=== PATIENT | female | born 1965 | race Caucasian/White ===

== ENCOUNTER 2019-02-18 10:58 | Emergency (ER) | payer MEDICAID ==
[2019-02-18 11:11] VITALS: BMI 21.2
[2019-02-18 11:13] VITALS: TEMP 98.5
[2019-02-18 11:53] VITALS: O2SAT 98
--- NOTE | 2019-02-18 13:48 | ED PDOC ---
Upper Extremity Pain/Injury Time Seen by Provider: 02/18/19 11:43 Chief Complaint (Nursing): Upper Extremity Problem/Injury Chief Complaint (Provider): hand pain History Per: Patient History/Exam Limitations: no limitations Onset/Duration Of Symptoms: Days Current Symptoms Are (Timing): Still Present Additional Complaint(s): Pt. is a healthy 54 year old Female who reports 3 week history of right hand pain, described as a soreness, made worse with ROM of 1st digit. Pt. denies any fevers, chills. She also denies any injury to right hand. Past Medical History Vital Signs: Last Vital Signs Temp 98.5 F 02/18/19 11:11 Pulse 59 L 02/18/19 11:11 Resp 17 02/18/19 11:11 BP 109/70 02/18/19 11:11 Pulse Ox 98 02/18/19 11:51 - Medical History PMH: No Chronic Diseases - Family History Family History: States: No Known Family Hx - Home Medications Home Medications: Ambulatory Orders Medication Instructions Recorded Naproxen 500 mg PO Q12 #10 tab 02/18/19 - Allergies Allergies/Adverse Reactions: Allergies Allergy/AdvReac Type Severity Reaction Status Date / Time No Known Allergies Allergy Verified 02/18/19 13:22 Physical Exam - Physical Exam Appears: Positive for: Well, Non-toxic Skin: Positive for: Normal Color, Warm, Dry Extremity: Positive for: Other (RUE: (+) mild tenderness over 1st MCP, with mild pain on flexion and extension. (-) erythema.) - ECG O2 Sat by Pulse Oximetry: 98 Medical Decision Making Medical Decision Making: Motrin po given. Hand x-ray: no fx as read by me Pt. feeling better after motrin. Exam as above, no evidence of tenosynovitis or infectious process. Hand immobilized with narinder wrap by angela roberts. Disposition - Clinical Impression Clinical Impression: Tendonitis - Patient ED Disposition Is Patient to be Admitted: No Counseled Patient/Family Regarding: Studies Performed, Diagnosis, Need For Followup - Disposition Referrals: Terry Means MD [Staff Provider] - Disposition: Routine/Home Disposition Time: 13:57 Condition: STABLE Additional Instructions: rest, ice, elevate. Prescriptions: Naproxen 500 mg PO Q12 #10 tab Instructions: Tendonitis (DC) Forms: [employer] (Khmer)
--- NOTE | 2019-02-18 14:19 | RAD ---
Date of service: 02/18/2019 PROCEDURE: Right Thumb radiographs. HISTORY: right 1st MCP pain COMPARISON: None. TECHNIQUE: AP radiograph of the right hand, as well as spot oblique and lateral images of thumb were obtained. 3 views obtained. FINDINGS: RIGHT THUMB: Normal right thumb, without fracture or focal lesion. Remainder of the right hand (as seen on the AP view) grossly unremarkable. JOINTS: Normal. SOFT TISSUES: Soft tissue swelling around the thumb. OTHER FINDINGS: None. IMPRESSION: Soft tissue swelling around the 1st digit without demonstrated fracture.
[2019-02-18 14:43] VITALS: BP 114/72; PULSE 68; RESP 28
== END 2019-02-18 14:34 | disposition home or self-care (01) ==
LOC: H.ER 10:58
DX: M77.9 Enthesopathy, unspecified (principal)